=== PATIENT | male | born 1970 | race Caucasian/White ===

== ENCOUNTER 2022-10-23 07:55 | Emergency (ER) | payer BC ==
[~2022-10-23] VITALS: Ht 180.3 cm; Wt 108.9 kg
[2022-10-23 08:32] LABS: HEMATOCRIT 43.5 % (36.7-47.1); MEAN CORPUSCULAR HEMOGLOBIN 30.7 uug (23.8-33.4); MEAN CORPUSCULAR VOLUME 89.1 fL (73.0-96.2); PLATELET COUNT (AUTO) 255 K/uL (152-348)
[2022-10-23 08:53] LABS: CARBON DIOXIDE 30 mmol/L (21-32); CHLORIDE 100 mmol/L (98-107); CREATININE 1.4 mg/dL (0.6-1.3); GLUCOSE 96 mg/dL (74-106); POTASSIUM 3.9 mmol/L (3.5-5.1); UREA NITROGEN, BLOOD 12 mg/dL (7-18)
[2022-10-23] MEDS ORDERED: METHOCARBAMOL 1000 MG/10 ML VIAL IV ONE (09:15)
[2022-10-23] MEDS ORDERED: METHOCARBAMOL 500 MG TABLET PO ONE (09:15)
[2022-10-23] MEDS ORDERED: METHOCARBAMOL 500 MG TABLET ONE (09:15)
[2022-10-23 09:17] LABS: NEUTROPHILS % (MANUAL) 0 % (42-75)
[2022-10-23] MEDS ORDERED: METH4TAB3 PO (09:33)
[2022-10-23] MEDS ORDERED: BENZ-13 PO (09:33)
--- NOTE | 2022-10-23 09:42 | NUR ---
Patient discharged to home in stable condition. Written and verbal after care instructions given. Patient verbalizes understanding of instructions. Stressed follow up or return to ER for worsening s/s.
== END 2022-10-23 10:04 | disposition home or self-care (01) ==
LOC: ER 07:55
DX: U07.1 COVID-19 (principal); R06.02 Shortness of breath
CPT/HCPCS: 99285; 93308; 71045; 80048; 85025; 85379; 84484; 36415; 93005; 85007; J2800; 70030-TC; A4663